=== PATIENT | male | born 1940 | race Caucasian/White ===

== ENCOUNTER 2021-08-08 06:54 | Day surgery (SDC) | payer MEDICARE, OTHER ==
[2021-08-08] MEDS ORDERED: Dexamethasone 4 MG/ML SDV IV ONE (06:55)
[2021-08-08] MEDS ORDERED: Midazolam 1 MG/ML 2 ML SDV IV ONE (06:55)
[2021-08-08] MEDS ORDERED: Sodium Chloride 0.9% 10 ML Syringe IV ONE (06:55)
[2021-08-08] MEDS ORDERED: Acetaminophen 325 MG Tab PO PRN (07:00)
[2021-08-08] MEDS ORDERED: Tobramycin 0.3% Ophth Drops 5 ML Bottle EYERT ONE (07:00)
[2021-08-08] MEDS ORDERED: Ondansetron 4 MG/2 ML SDV IVPUSH PRN (07:00)
[2021-08-08] MEDS ORDERED: Acetaminophen/Codeine 300-30 MG Tab PO PRN (07:00)
[2021-08-08] MEDS: Sodium Chloride 0.9% 10 ML Syringe FLUSH PRN (07:20)
[2021-08-08] MEDS: Proparacaine 0.5% Ophth Soln 15 ML Bottle EYERT ONE (07:55)
[2021-08-08] MEDS: Povidone-Iodine 5% Sterile Ophth Soln 30 ML Bottle EYERT ONE ×2 (07:56→09:13)
[2021-08-08] MEDS: Moxifloxacin 0.5% Ophth Soln 3 ML Bottle EYERT ONE (07:58)
[2021-08-08] MEDS: Tropicamide 1% Ophth Soln 15 ML Bottle EYERT ONE (07:58)
[2021-08-08] MEDS: Phenylephrine 10% Ophth Soln 5 ML Bot EYERT PRN (07:59)
[2021-08-08] MEDS: Cataract Ophth Solution EYERT ONE (08:00)
[2021-08-08] MEDS: Timolol Maleate 0.5% Ophth Soln 5 ML Bottle EYERT ONE (08:00)
[2021-08-08] MEDS: Tetracaine HCl/PF 0.5% 4 ML Bottle EYERT ONE (09:13)
[2021-08-08] MEDS: Lidocaine 1% 30 ML SDV ONE (09:14)
[2021-08-08] MEDS: Apraclonidine 0.5% Ophth Soln 5 ML Bot EYERT ONE (09:14)
[2021-08-08] MEDS: Dexamethasone/Neomycin/Polymyxin B Ophth Oint 3.5 GM Tube EYERT ONE (09:14)
[2021-08-08] MEDS: Diclofenac Sodium 0.1% Ophth Soln 5 ML Bottle EYERT ONE (09:14)
[2021-08-08] MEDS: Chondroitin Sulfate/Hyaluronate Sodium Ophth Inj 0.75 ML Syringe EYERT ONE (09:15)
[2021-08-08] MEDS: Vancomycin 500 MG SDV EYERT ONE (09:15)
[2021-08-08] MEDS: Balanced Salt Solution Ophth Irrig 500 ML Bottle IOCULAR ONE (09:15)
--- NOTE | 2021-08-09 07:17 | OR ---
DATE: 08/08/2021 PREOPERATIVE DIAGNOSIS: Visually significant mixed cataract, right eye. POSTOPERATIVE DIAGNOSIS: Visually significant mixed cataract, right eye. PROCEDURE: Extracapsular cataract extraction with intraocular lens implant, right eye. ANESTHESIA: Topical/local MAC. COMPLICATIONS: None. INDICATION: Mr. Gardner was seen in the clinic with complaints of blurred vision. The examination revealed visually significant mixed cataract. He has difficulty working on the computer, difficulty driving, and difficulty reading. He saw his regular project surveyor, Dr. Lam. Dr. Lam was not able to improve his vision and meet his visual needs with a change in glasses. I explained options, offered cataract surgery, and I explained risks including the potential for infection, retinal detachment, loss of vision, and need for additional surgery, amongst others. We have discussed implant options. He has requested a monofocal implant. He is comfortable wearing glasses following surgery if necessary. OPERATIVE DESCRIPTION: After informed consent was obtained and the risks, benefits, and alternatives were explained, the patient was brought to the operative suite and topical anesthesia was administered. The patient was then prepped and draped in the sterile fashion and attention was placed on the right eye. A sterile lid speculum was placed into the right eye to allow operative exposure. A full-thickness paracentesis was made in the temporal portion of the operative eye. Preservative-free lidocaine 0.1 mL was injected into the anterior chamber followed by viscoelastic. A full-thickness corneal incision was then made into the anterior chamber. A bent needle cystotome was used to create a small ren in the anterior capsule. The capsulorrhexis forceps was then used to create a 360-degree curvilinear capsulorrhexis. The nucleus was then removed using a phacoemulsification handpiece and the remaining cortical material was then removed with irrigation and aspiration handpiece. Following removal of the cortical material, the capsular bag was then inspected and noted to be free of any holes or tears. Viscoelastic was then injected into the capsular bag and the intraocular lens was inserted into the capsular bag. The viscoelastic material was then removed from both the anterior and posterior chambers and from behind the IOL. The lens and capsular bag were then reinspected. The IOL was well centered and the capsular bag intact. The wound and paracentesis sites were inspected and hydrated with balanced saline solution. Both were found to be self-sealing. The intraocular pressure was assessed digitally and found to be within normal range. A good red reflex was noted at the completion of the procedure. No complications occurred during the operation. At the completion of the procedure, Maxitrol, Voltaren, and Iopidine drops were placed into the operative eye. A sterile eye shield was placed over the operative eye and the patient was transported to the postoperative recovery area having tolerated the procedure well. Postoperative instructions were given along with a postoperative appointment. The patient was advised to call with any questions or concerns. [facility] /[id number]
== END 2021-08-08 10:31 | disposition home or self-care (01) ==
LOC: DL.SDS 06:54
PROVIDERS: ATTEND Ophthalmology
DX: H26.8 Other specified cataract (principal); E78.00 Pure hypercholesterolemia, unspecified; M06.9 Rheumatoid arthritis, unspecified; G47.30 Sleep apnea, unspecified; Z98.890 Other specified postprocedural states; Z87.891 Personal history of nicotine dependence; Z79.899 Other long term (current) drug therapy; Z88.0 Allergy status to penicillin
CPT/HCPCS: 00142; A9270-GY; J1100; J2250; J3370; V2632

== ENCOUNTER 2021-10-10 06:22 | Day surgery (SDC) | payer MEDICARE, OTHER ==
[2021-10-10] MEDS ORDERED: Midazolam 1 MG/ML 2 ML SDV IV ONE (06:23)
[2021-10-10] MEDS ORDERED: Dexamethasone 4 MG/ML SDV IV ONE (06:23)
[2021-10-10] MEDS ORDERED: Sodium Chloride 0.9% 10 ML Syringe IV ONE (06:23)
[2021-10-10] MEDS ORDERED: Acetaminophen/Codeine 300-30 MG Tab PO PRN (06:30)
[2021-10-10] MEDS ORDERED: Moxifloxacin 0.5% Ophth Soln 3 ML Bottle EYELF ONE (06:30)
[2021-10-10] MEDS ORDERED: Povidone-Iodine 5% Sterile Ophth Soln 30 ML Bottle EYELF ONE ×2 (06:30→08:03)
[2021-10-10] MEDS ORDERED: Cataract Ophth Solution EYELF ONE (06:30)
[2021-10-10] MEDS ORDERED: Ondansetron 4 MG/2 ML SDV IVPUSH PRN (06:30)
[2021-10-10] MEDS ORDERED: Tropicamide 1% Ophth Soln 15 ML Bottle EYELF ONE (06:30)
[2021-10-10] MEDS ORDERED: Phenylephrine 10% Ophth Soln 5 ML Bot EYELF PRN (06:30)
[2021-10-10] MEDS ORDERED: Acetaminophen 325 MG Tab PO PRN (06:30)
[2021-10-10] MEDS ORDERED: Tobramycin 0.3% Ophth Drops 5 ML Bottle EYELF SCH (06:30)
[2021-10-10] MEDS ORDERED: Timolol Maleate 0.5% Ophth Soln 5 ML Bottle EYELF ONE (06:30)
[2021-10-10] MEDS ORDERED: Proparacaine 0.5% Ophth Soln 15 ML Bottle EYELF ONE (06:30)
[2021-10-10] MEDS ORDERED: Apraclonidine 0.5% Ophth Soln 5 ML Bot EYELF ONE (08:03)
[2021-10-10] MEDS ORDERED: Tetracaine HCl/PF 0.5% 4 ML Bottle EYELF ONE (08:03)
[2021-10-10] MEDS ORDERED: Dexamethasone/Neomycin/Polymyxin B Ophth Oint 3.5 GM Tube EYELF ONE (08:04)
[2021-10-10] MEDS ORDERED: Diclofenac Sodium 0.1% Ophth Soln 5 ML Bottle EYELF ONE (08:04)
[2021-10-10] MEDS ORDERED: Balanced Salt Solution Ophth Irrig 500 ML Bottle IOCULAR ONE (08:04)
[2021-10-10] MEDS ORDERED: Chondroitin Sulfate/Hyaluronate Sodium Ophth Inj 0.75 ML Syringe EYELF ONE (08:04)
[2021-10-10] MEDS ORDERED: Vancomycin 500 MG SDV EYELF ONE (08:05)
[2021-10-10] MEDS ORDERED: Lidocaine 1% 30 ML SDV ONE (08:05)
== END 2021-10-10 09:20 | disposition home or self-care (01) ==
LOC: DL.SDS 06:22
PROVIDERS: ATTEND Ophthalmology
DX: H25.812 Combined forms of age-related cataract, left eye (principal); E78.00 Pure hypercholesterolemia, unspecified; M06.9 Rheumatoid arthritis, unspecified; G47.33 Obstructive sleep apnea (adult) (pediatric); Z98.890 Other specified postprocedural states; Z87.891 Personal history of nicotine dependence; Z79.899 Other long term (current) drug therapy; Z88.0 Allergy status to penicillin
CPT/HCPCS: 00142; 66984; A9270; J1100; J2250; J3370; V2632

== ENCOUNTER 2022-09-06 17:08 | Emergency (ER) | payer MEDICARE, OTHER ==
[2022-09-06] MEDS ORDERED: Cephalexin 500 MG Cap PO ONE (17:57)
== END 2022-09-06 18:15 | disposition home or self-care (01) ==
LOC: DL.ED 17:08
DX: H65.92 Unspecified nonsuppurative otitis media, left ear (principal); Z88.0 Allergy status to penicillin; Z87.891 Personal history of nicotine dependence
CPT/HCPCS: 99282; A9270

== ENCOUNTER 2023-09-18 13:47 | Emergency (ER) | payer MEDICARE, OTHER ==
[2023-09-18] MEDS ORDERED: Tranexamic Acid 1,000 MG/10 ML Vial TOP ONE ×2 (14:07→14:19)
[2023-09-18] MEDS ORDERED: Tranexamic Acid 1,000 MG/10 ML Vial ONE (14:08)
== END 2023-09-18 15:10 | disposition home or self-care (01) ==
LOC: DL.ED 13:47
DX: R04.0 Epistaxis (principal); Z88.0 Allergy status to penicillin; Z86.16 Personal history of COVID-19
CPT/HCPCS: 30903; 99283; J3490

== ENCOUNTER 2023-09-20 15:55 | Emergency (ER) | payer MEDICARE, OTHER ==
[2023-09-20] MEDS ORDERED: Silver Nitrate Applicator Each ONE ×2 (16:38→17:46)
[2023-09-20] MEDS ORDERED: Silver Nitrate Applicator Each TOP ONE (17:19)
[2023-09-20 17:21] LABS: BASOPHILS PERCENT AUTO 0.4 % (0.0-1.0); EOSINOPHILS PERCENT AUTO 0.7 % (1.0-3.0); HEMATOCRIT 41.6 % (40.0-54.0); HEMOGLOBIN 13.6 g/dL (14.0-18.0); LYMPHOCYTES PERCENT AUTO 15.5 % (20.5-50.1); MEAN CORPUSCULAR HEMOGLOBIN 27.4 pg (27.0-34.0); MEAN CORPUSCULAR HGB CONC 32.7 g/dL (33.0-35.0); MEAN CORPUSCULAR VOLUME 83.9 fL (80-100); MONOCYTES PERCENT AUTO 9.4 % (2-8); PLATELET COUNT,PLT 290 10^3/uL (150-450); RED BLOOD CELL COUNT 4.96 10^6/uL (4.6-6.2); WHITE BLOOD CELL COUNT,WBC 11.3 10^3/uL (5.0-10.0)
[2023-09-20 17:36] LABS: ALBUMIN 3.1 g/dL (3.4-5.0); ANION GAP 14.1 mEq/L (7-13); BILIRUBIN TOTAL 0.8 mg/dL (0.2-1.0); BUN/CREATININE RATIO 18.5 (No establ ref range); C-REACTIVE PROTEIN 4.97 ng/dL (<=0.50); CALCIUM 8.6 mg/dL (8.5-10.1); CREATININE 1.19 mg/dL (0.70-1.30); EST CRCL DRUG DOSING (CG) 44.52 mL/min; POTASSIUM,K 4.1 mmol/L (3.5-5.1); PROTEIN TOTAL,TP 7.6 g/dL (6.4-8.2)
[2023-09-20 17:37] LABS: A/G RATIO 0.69
[2023-09-20] MEDS ORDERED: Sodium Chloride 0.9% 1,000 ML IV ONE (17:41)
== END 2023-09-20 18:23 | disposition home or self-care (01) ==
LOC: DL.ED 15:55
DX: R04.0 Epistaxis (principal); Z86.16 Personal history of COVID-19; Z88.0 Allergy status to penicillin
CPT/HCPCS: 30901; 36415; 80053; 83615; 85025; 86140; 99283; J7030

== ENCOUNTER 2024-11-08 09:32 | Emergency (ER) | payer MEDICARE, OTHER ==
[2024-11-08] MEDS ORDERED: Sodium Chloride 0.9% 10 ML Syringe FLUSH PRN (09:43)
[2024-11-08] MEDS: Ondansetron 4 MG/2 ML SDV IVPUSH ONE (09:45)
[2024-11-08 10:01] LABS: BASOPHILS PERCENT AUTO 0.2 % (0.0-1.0); EOSINOPHILS PERCENT AUTO 0.1 % (1.0-3.0); HEMATOCRIT 48.2 % (40.0-54.0); HEMOGLOBIN 15.7 g/dL (14.0-18.0); LYMPHOCYTES PERCENT AUTO 1.8 % (20.5-50.1); MEAN CORPUSCULAR HEMOGLOBIN 27.7 pg (27.0-34.0); MEAN CORPUSCULAR HGB CONC 32.6 g/dL (33.0-35.0); MONOCYTES PERCENT AUTO 3.2 % (2-8); NEUTROPHILS PERCENT AUTO 94.7 % (42.2-75.2); PLATELET COUNT,PLT 358 10^3/uL (150-450); RED BLOOD CELL COUNT 5.67 10^6/uL (4.6-6.2); WHITE BLOOD CELL COUNT,WBC 16.4 10^3/uL (5.0-10.0)
[2024-11-08] MEDS: Lactated Ringers 1,000 ML IV SCH (10:08)
[2024-11-08 10:17] LABS: ALBUMIN 3.2 g/dL (3.4-5.0); BILIRUBIN TOTAL 0.6 mg/dL (0.2-1.0); BUN/CREATININE RATIO 17.5 (No establ ref range); CALCIUM 8.9 mg/dL (8.5-10.1); CREATININE 1.77 mg/dL (0.70-1.30); EST CRCL DRUG DOSING (CG) 28.97 mL/min; MAGNESIUM 2.2 mg/dL (1.8-2.4)
[2024-11-08 10:18] LABS: A/G RATIO 0.67
== END 2024-11-08 11:17 | disposition home or self-care (01) ==
LOC: DL.ED 09:32
DX: K52.9 Noninfective gastroenteritis and colitis, unspecified (principal); E86.0 Dehydration; Z86.16 Personal history of COVID-19; Z88.0 Allergy status to penicillin
CPT/HCPCS: 36415; 80053; 83735; 85025; 96361; 96374; 99284; 99284-25; J2405; J7120

== ENCOUNTER 2024-11-09 08:09 | Emergency (ER) | payer MEDICARE, OTHER ==
[2024-11-09 08:55] LABS: BASOPHILS PERCENT AUTO 0.1 % (0.0-1.0); HEMATOCRIT 45.2 % (40.0-54.0); HEMOGLOBIN 14.5 g/dL (14.0-18.0); MEAN CORPUSCULAR HEMOGLOBIN 27.7 pg (27.0-34.0); MEAN CORPUSCULAR HGB CONC 32.1 g/dL (33.0-35.0); MEAN CORPUSCULAR VOLUME 86.3 fL (80-100); MONOCYTES PERCENT AUTO 9.5 % (2-8); NEUTROPHILS PERCENT AUTO 80.4 % (42.2-75.2); PLATELET COUNT,PLT 321 10^3/uL (150-450); RED BLOOD CELL COUNT 5.24 10^6/uL (4.6-6.2); WHITE BLOOD CELL COUNT,WBC 9.6 10^3/uL (5.0-10.0)
[2024-11-09 09:15] LABS: ALBUMIN 2.8 g/dL (3.4-5.0); ANION GAP 11.2 mEq/L (7-13); BILIRUBIN TOTAL 0.5 mg/dL (0.2-1.0); BUN/CREATININE RATIO 20.6 (No establ ref range); CALCIUM 8.4 mg/dL (8.5-10.1); CREATININE 1.55 mg/dL (0.70-1.30); EST CRCL DRUG DOSING (CG) 32.9 mL/min; MAGNESIUM 2.2 mg/dL (1.8-2.4); POTASSIUM,K 5.2 mmol/L (3.5-5.1); PROTEIN TOTAL,TP 7.1 g/dL (6.4-8.2)
[2024-11-09 09:20] LABS: A/G RATIO 0.65
[2024-11-09] MEDS: Loperamide 2 MG Cap PO ONE (09:26)
== END 2024-11-09 09:30 | disposition home or self-care (01) ==
LOC: DL.ED 08:09
DX: A09 Infectious gastroenteritis and colitis, unspecified (principal); Z86.16 Personal history of COVID-19; Z88.0 Allergy status to penicillin
CPT/HCPCS: 36415; 80053; 83735; 85025; 87045; 87046; 87493; 87899; 99284; A9270